=== PATIENT | female | born 1980 | race African-American/Black ===

== ENCOUNTER 2019-12-03 04:48 | Day surgery (SDC) | payer OTHER ==
[2019-12-01 16:57] VITALS: BMI 41.8
[~2019-12-03 04:48] MED LIST: BUPIVACAINE HCL/PF 0.5% (5MG/ML) 10 ML VIAL IJ ONE
[2019-12-03] MEDS ORDERED: MIDAZOLAM HCL 2 MG/2 ML SINGLE DOSE VIAL ONE (07:23)
[2019-12-03] MEDS ORDERED: ROCURONIUM BROMIDE 50 MG/5 ML SYRINGE ONE (07:23)
[2019-12-03] MEDS ORDERED: PROPOFOL 20 ML ONE (07:23)
[2019-12-03] MEDS ORDERED: fentaNYL CITRATE 250 MCG/5 ML VIAL ONE ×2 (07:23→10:21)
[2019-12-03] MEDS ORDERED: LIDOCAINE HCL/PF 2% SDV 5ML VIAL ONE (07:24)
[2019-12-03] MEDS ORDERED: DEXAMETHASONE SOD PHOSPHATE 4 MG/1 ML VIAL ONE (07:24)
[2019-12-03] MEDS ORDERED: IBUPROFEN 600 MG TABLET (FP) PO PRN (08:07)
[2019-12-03] MEDS ORDERED: ACETAMINOPHEN 325 MG TABLET (FP) PO PRN (08:07)
--- NOTE | 2019-12-03 08:07 | HP ---
History & Physical Update - History History: No Change - Physical Physical: No Change - Assessment Assessment: No Change - Plan Plan: No Change (No change in HP)
[2019-12-03] MEDS ORDERED: LACTATED RINGERS SOLUTION 1,000 ML IV SCH (08:15)
[2019-12-03] MEDS ORDERED: ceFAZolin SODIUM 1 GM VIAL IVPB ONE (09:17)
[2019-12-03] MEDS ORDERED: ceFAZolin SODIUM 1 GM VIAL ONE (09:28)
[2019-12-03] MEDS ORDERED: BUPIVACAINE HCL/PF 0.5% (5MG/ML) 10 ML VIAL IJ ONE (10:01)
[2019-12-03] MEDS ORDERED: NEOSTIGMINE METHYLSULFATE 0.5 MG/ML - 10 ML MDV ONE (10:02)
[2019-12-03] MEDS ORDERED: GLYCOPYRROLATE 0.2 MG/1 ML VIAL ONE (10:02)
--- NOTE | 2019-12-03 10:42 | OP ---
<Derick Bobo II - Last Filed: 12/03/19 10:37> Operative Note - Note: Operative Date: 12/03/19 Pre-Operative Diagnosis: Voluntary Sterilization Operation: Laparoscopic Bilateral Salpingectomy, IUD Removal, Right Ovarian Cyst Removal Post-Operative Diagnosis: Same as Pre-op Surgeon: Rhianna Strong Event Operations Manager: Derick Bobo II Anesthesia: General Specimens Removed: IUD, Bilateral Fallopian Tubes Estimated Blood Loss (mls): 5 Drains, Volume Out (mls): 100 (Martinez) Fluid Volume Replaced (mls): 600 Operative Report Dictated: Yes <Rhianna Strong - Last Filed: 12/03/19 10:50> Operative Note - Note: Operation: Laparoscopic right ovarian cystectomy. hysteroscopic IUD removal Findings: right ovarian 2-3 cm cyst Post-Operative Diagnosis: Other (right ovarian cyst) Specimens Removed: right ovarian cyst
--- NOTE | 2019-12-03 10:50 | SURG ---
Surgery Log Clerk Note Log Clerk: AASHISH Finney Date of Service: 12/03/19 Diagnosis: Voluntary Sterilization Procedure: Laparoscopic Bilateral Salpingectomy, Right Ovarian Cyst removal, Removal Of IUD I was present for the entirety of the operative procedure. For further detail, please refer to operative report.
--- NOTE | 2019-12-03 11:06 | OP ---
DATE OF OPERATION: 12/03/2019 PREOPERATIVE DIAGNOSIS: Voluntary sterilization and malfunction of intrauterine device. OPERATION: Laparoscopic bilateral salpingectomy, hysteroscopic intrauterine device removal, and laparoscopic right ovarian cystectomy. POSTOPERATIVE DIAGNOSES: 1. Voluntary sterilization and malfunction of intrauterine device. 2. Right ovarian cyst. SURGEON: Rhianna Strong MD DUPLICATING MACHINE SERVICER: AASHISH Finney II ANESTHESIA: General. DESCRIPTION OF PROCEDURE: Patient was taken to the operating room and placed in dorsal lithotomy position, prepped and draped in the usual sterile fashion. Timeout was performed in accordance with hospital regulation. Martinez catheter was inserted into the bladder. Attention was then drawn to the umbilicus where a 5-mm umbilical incision was made. Veress needle was inserted into the cavity. Approximately 3-4 L of CO2 was insufflated in the cavity. Veress needle was then removed, and a 5-mm trocar was then inserted, laparoscope and camera attached. Visualization revealed the right ovarian cyst on the right, and the left ovary was normal, and the tubes were normal. On the left was noted to be a fibroma. Two trocars were placed in the lower abdomen after 5-mm incisions were made. Under direct visualization, trocars were inserted. LigaSure as well as grasper was then used to coagulate and cut the right fallopian tube, and right fallopian tube was then removed and submitted to pathology. Left fallopian tube was grasped, and coagulation and cutting of the tube was done, and then the left tube was removed. A fibroma was noted on the tube, and the right ovary noted ovarian cyst. Cystectomy was then performed using LigaSure and a grasper, and coagulation of the cyst was done and removed and submitted to pathology. Hemostasis was achieved. All instruments were then removed. CO2 was removed from the abdomen. Incisions were then closed using 3-0 Vicryl subcuticular fashion. Wounds were washed and dressed. Attention was then drawn to the vagina, where a speculum was placed in the vagina. Hysteroscopy was then used after cervix was then dilated to accommodate the operative hysteroscope. Hysteroscope was then used to grasp the IUD, and IUD removal was done. A small myoma was noted anteriorly in the cavity. Otherwise, the cavity was normal. All instruments then removed. Patient had tolerated the procedure well. Estimated blood loss was 5 mL. RHIANNA STRONG M.D. [id number]
[2019-12-03] MEDS ORDERED: ONDANSETRON 4 MG/2 ML VIAL IVPUSH PRN (11:23)
[2019-12-03] MEDS ORDERED: oxyCODONE HCL 5 MG TABLET PO PRN (11:23)
[2019-12-03 12:33] VITALS: BP 121/96; PULSE 70; TEMP 98.4
--- NOTE | 2019-12-04 16:31 | PATH ---
Surgical Pathology Report Patient Name: REJI KRUGER [facility]. Rec. #: [id number] /Age/Gender: 1980 (Age: 39) / F Account: [id number] Location: [facility] SURGICAL Taken: 12/03/2019 Received: 12/03/2019 Reported: 12/04/2019 Physicians: Rhianna Strong M.D. Specimen(s) Received A: RIGHT FALLOPIAN TUBE B: LEFT FALLOPIAN TUBE C: IUD D: CYST RIGHT OVARY Clinical History Voluntary sterilization Final Diagnosis A. RIGHT FALLOPIAN TUBE, SALPINGECTOMY: PORTION OF FALLOPIAN TUBE WITH PARATUBAL CYSTS. COMPLETE CROSS SECTION OF FALLOPIAN TUBE LUMEN IDENTIFIED. B. LEFT FALLOPIAN TUBE, SALPINGECTOMY: PORTION OF FALLOPIAN TUBE SHOWING FOCAL PARATUBAL NODULAR FIBROSIS WITH DYSTROPHIC CALCIFICATION AND PARATUBAL CYST. COMPLETE CROSS SECTION OF FALLOPIAN TUBE LUMEN IDENTIFIED. C. IUD (FOREIGN BODY), REMOVAL: INTRAUTERINE DEVICE. GROSS EXAMINATION ONLY. D. RIGHT OVARIAN CYST, EXCISION: CONSISTENT WITH HEMORRHAGIC CORPUS LUTEUM CYST. Electronically Signed Angel Iverson M.D. Gross Description A. Received in formalin labeled "right fallopian tube," is a 5.5 cm in length fimbriated fallopian tube. There are 2 paratubal cysts attached averaging 0.5 cm in greatest dimension. The remaining outer surface is haile-pink and smooth. Sectioning reveals an unremarkable lumen. [employer] sections are submitted in 2 cassettes as follows: 1-fimbria and paratubal cyst; 2-cross sections of fallopian tube and paratubal cyst. B. Received in formalin labeled "left fallopian tube," are 2 portions of fallopian tube measuring 1.8 and 4.0 cm in greatest dimension. The fimbriae are separately received within the same container and display an attached calcified lesion. The outer surface of the fallopian tube is pink-haile and smooth. Sectioning reveals an unremarkable lumen. [employer] sections are submitted in 2 cassettes as follows: 1-fimbria with calcified lesion, following decalcification; 2-cross sections of fallopian tube. C. Received fresh labeled "foreign body IUD," is a 3 cm in length white, plastic, T-shaped device with attached string, consistent with an IUD. No soft tissue is present. No sections are submitted, gross only. D. Received in formalin labeled "right ovarian cyst," is a 2.0 x 1.3 x 0.2 cm aggregate of multiple red-yellow portions of soft tissue, consistent with a disrupted ovarian cyst. The specimen is submitted in toto in one cassette. 12/03/2019 [facility]12/03/2019
== END 2019-12-03 12:40 | disposition home or self-care (01) ==
LOC: JASU-SURG 04:48
PROVIDERS: ATTEND Obstetrics & Gynecology
PROC: 0UB04ZZ Excision of Right Ovary, Percutaneous Endoscopic Approach (ICD-10-PCS; 2019-12-03)
PROC: 0UC98ZZ Extirpation of Matter from Uterus, Via Natural or Artificial Opening Endoscopic (ICD-10-PCS; 2019-12-03)
PROC: 0U574ZZ Destruction of Bilateral Fallopian Tubes, Percutaneous Endoscopic Approach (ICD-10-PCS; principal; 2019-12-03 09:00)
DX: Z30.2 Encounter for sterilization (principal); N83.201 Unspecified ovarian cyst, right side
CPT/HCPCS: 36415; 84703; 86850; 86900; 86901; 88300-TC; 88302-TC; 88305-TC; 94760